=== PATIENT | female | born 1950 | race Caucasian/White ===

== ENCOUNTER → 2016-06-28 | Outpatient (CLI) | payer MEDICARE, MEDICAID ==
[~2016-06-28] MED LIST: BENA10TA PO; ECOT81TA5 PO; LAMO200T PO; LORTAB 5/325 PO; MAGN400C2 PO; PAME25CA PO; PRIM50TA6 PO; SERT50TA PO; TOPI50TA4 PO; VITA500C10 PO
--- NOTE | 2016-06-28 09:17 | REPMRS ---
Patient History The patient states she has not had a clinical breast exam in over a year. Patient is postmenopausal. Family history of breast cancer in 3 sisters. Digital Woman Screen Mammo: June 28, 2016 - Exam #: [id number] Bilateral CC and MLO view(s) were taken. Technologist: Susan Omer, Technologist Prior study comparison: July 15, 2015, digital woman screen mammo performed at [facility] to [facility]. July 17, 2014, digital woman screen mammo performed at [facility] to [facility]. FINDINGS: There are scattered fibroglandular densities. There has been no change in the appearance of the mammogram from the prior studies. There is a mild amount of residual fibroglandular tissue which is fairly symmetric. There is no interval development of dominant mass, architectural distortion, or clustered microcalcification suggestive of malignancy. ASSESSMENT: BI-RADS/ACR category 1 mammogram. Negative. Recommendation Routine screening mammogram in 1 year (for women over age 40). This mammogram was interpreted with the aid of an FDA-approved computer-aided dectection system. Electronically Signed By: Sudarshan Cunningham MD 06/28/16 0916
== END ==
LOC: M WHC 07:52
PROVIDERS: ATTEND Family Medicine
DX: Z12.31 Encounter for screening mammogram for malignant neoplasm of breast (principal); Z13.820 Encounter for screening for osteoporosis

== ENCOUNTER → 2017-07-06 | Outpatient (CLI) | payer OTHER | LOC: M WHC 07:53 | DX: Z12.31 Encounter for screening mammogram for malignant neoplasm of breast (principal) | CPT/HCPCS: 77067 ==

== ENCOUNTER → 2018-07-05 | Outpatient (CLI) | payer MEDICARE ==
[~2018-07-05] MED LIST changes: -LAMO200T PO; +LAMO200T2 PO; +SERT-141 PO; -SERT50TA PO; -TOPI50TA4 PO; +TOPI50TA9 PO
--- NOTE | 2018-07-05 16:26 | REPMRS ---
Patient History The patient states she has not had a clinical breast exam in over a year. Family history of breast cancer at age 50 or over in sister, breast cancer at age 50 or over in sister, breast cancer in sister, breast cancer in sister, breast cancer in mother. Digital Woman Screen Mammo: July 05, 2018 - Exam #: [id number] Bilateral CC and MLO view(s) were taken. Technologist: Nina Lau, Technologist Prior study comparison: July 06, 2017, digital woman screen mammo performed at [facility]. June 28, 2016, digital woman screen mammo performed at [facility]. July 15, 2015, digital woman screen mammo performed at [facility]. FINDINGS: There are scattered fibroglandular densities. There has been no change in the appearance of the mammogram from the prior studies. There is a mild amount of scattered fibroglandular density which is fairly symmetric. There is no interval development of dominant mass, architectural distortion, or clustered microcalcification suggestive of malignancy. 3-D tomosynthesis shows no additional findings. Assessment: BI-RADS/ACR category 1 mammogram. Negative Mammogram. Recommendation Routine screening mammogram of both breasts in 1 year (for women over age 40). This patient's Lifetime Breast Cancer RIsk is estimated at 12.5 %. This mammogram was interpreted with the aid of an FDA-approved computer-aided dectection system. Electronically Signed By: Westley Ash MD 07/05/18 [id number]
== END ==
LOC: M WHC 12:49
PROVIDERS: ATTEND Family Medicine
DX: Z12.31 Encounter for screening mammogram for malignant neoplasm of breast (principal)

== ENCOUNTER 2019-02-24 21:43 | Inpatient (IN) | payer MEDICARE ==
[~2019-02-24] VITALS: Ht 154.9 cm; Wt 86.6 kg
[~2019-02-24 21:43] MED LIST changes: -LAMO200T2 PO; +LAMO200T3 PO
[2019-02-24] MEDS ORDERED: VITA500045 PO (22:11)
[2019-02-24] MEDS ORDERED: VENL150C43 PO (22:11)
[2019-02-24] MEDS ORDERED: ATOR1TAB21 PO (22:11)
[2019-02-24] MEDS ORDERED: dexameTHASONE 20 MG/5 ML VIAL (J1100) IV ONE (22:15)
[2019-02-24 22:17] LABS: BASO # 0.1 10^3/uL (0.0-0.2); BASO % 0.9 % (0.0-1.0); EOS # 0.2 10^3/uL (0.0-0.5); EOS % 3.4 % (0.0-3.0); HEMATOCRIT 41.9 % (36.0-47.0); HEMOGLOBIN 12.3 g/dl (12.0-15.5); LYMPH # 2.2 10^3/uL (1.5-5.0); MEAN CORPUSCULAR HEMOGLOBIN 29.6 pg (27.0-33.0); MEAN CORPUSCULAR HGB CONC 29.4 g/dl (32.0-36.5); MEAN CORPUSCULAR VOLUME 100.7 fl (80.0-96.0); MONO # 0.4 10^3/uL (0.0-0.8); NEUTROPHILS % 52.4 % (36.0-66.0); PLATELET COUNT, AUTOMATED 158 10^3/uL (150-450); RED BLOOD COUNT 4.16 10^6/uL (4.00-5.40); WHITE BLOOD COUNT 5.8 10^3/uL (4.0-10.0)
[2019-02-24 22:19] LABS: VENOUS BASE EXCESS -3.3 (-2.0-2.0); VENOUS O2 SATURATION 80.2 % (60.0-80.0); VENOUS PARTIAL PRESSURE CO2 59.7 mmHg (38.0-50.0); VENOUS PARTIAL PRESSURE O2 48.8 mmHg (30.0-50.0); VENOUS STANDARD HCO3 21.4 MEQ/L; VENOUS TOTAL CO2 26.8 MEQ/L (24.0-28.0)
[2019-02-24] MEDS: IPRATROPIUM 0.5MG/ALBUTEROL 2.5MG INH SOL UD 3ML (DUONEB)(J7620) NEB SCH ×3 (22:22→23:43)
[2019-02-24 22:34] LABS: BLOOD UREA NITROGEN 26 MG/DL (7-18); CARBON DIOXIDE LEVEL 28 MEQ/L (21-32); CHLORIDE LEVEL 110 MEQ/L (98-107); CK-MB VALUE MASS 1.5 NG/ML (<3.6); CPK CREATINE PHOSPHOKINASE 49 U/L (26-192); CREATININE FOR GFR 0.92 MG/DL (0.55-1.30); GLOMERULAR FILTRATION RATE > 60.0 (>45); GLUCOSE, FASTING 112 MG/DL (70-100); MB/CK RELATIVE INDEX 3.06 (< OR =4); NT-PRO BNP 24 PG/ML (<125); POTASSIUM SERUM 3.8 MEQ/L (3.5-5.1); SODIUM LEVEL 143 MEQ/L (136-145); TROPONIN I < 0.02 NG/ML (< 0.10)
[2019-02-24 22:48] LABS: INFLUENZA A AMPLIFICATION NEGATIVE (NEGATIVE); INFLUENZA B AMPLIFICATION NEGATIVE (NEGATIVE)
[2019-02-24] MEDS ORDERED: HALOPERIDOL 5 MG/ML VIAL (J1630) IM STA (23:09)
[2019-02-24] MEDS ORDERED: diphenhydrAMINE INJ 50MG/ML VIAL (J1200) IM STA (23:09)
[2019-02-24] MEDS ORDERED: TOPI50TA9 PO (23:12)
[2019-02-24] MEDS ORDERED: VITA500C24 PO (23:12)
[2019-02-24] MEDS ORDERED: TOPI100T9 PO ×2 (23:13)
[2019-02-24] MEDS ORDERED: TYLETAB14 PO (23:16)
[2019-02-24] MEDS ORDERED: HYDR-3713 PO (23:16)
--- NOTE | 2019-02-24 23:28 | HPEPDOC ---
[facility] [place] Medical History & Physical Date of Admission Feb 24, 2019 Date of Service: Feb 24, 2019 Primary Care Physician: ARYAN DELEON MD [facility] Attending Physician: LINNETTE PAN MD History and Physical TIME OF SERVICE: 11:55 PM CHIEF COMPLAINT:Shortness of breath HISTORY OF PRESENT ILLNESS: Majority of history was obtained of the patient's children because she has difficult. He talking This is a 68-year-old female who is complaining of gradually worsening shortness of breath over the last 2 months. She came to the hospital today because she developed worsening shortness of breath with exertion and a dry cough. She denies having fevers, chills, nausea, vomiting, diarrhea, chest pain, lower extremity edema, decreased activity or headache. According to her children her whole-body has been "shaking" for the last year but became worse today. REVIEW OF SYSTEMS: 12 point review of systems negative except as listed in HPI PAST MEDICAL/ SURGICAL HISTORY: Restrictive lung disease. Chronic Hypertension Meningioma Seizure disorder GERD Depression Scoliosis. Status post cholecystectomy. Obesity. 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 SOCIAL HISTORY: She doesn't smoke FAMILY HISTORY: 3 of her sisters and her mother had breast cancer ALLERGIES: Please see below. HOME MEDICATIONS: Please see below. PHYSICAL EXAMINATION: VITAL SIGNS: Please see below. GEN: well nourished / well developed/ / slightly anxious INTEGUMENT: She does not have facial plethora HEENT: normocephalic / atraumatic / lips are not cyanotic / she does not have pursed lip breathing / NC in place / maximal laryngeal height is <4cm / mucus membranes moist and slightly dry/ sclera anicteric CVS: RRR/unable to appreciate P-pulmonale / heart sounds are not distant / radial and dorsalis pedis pulses intact / there is no no lower extremity edema LUNGS: She does not have nasal flaring /she is not able to speak full sentences without stopping to take a breath /she is coughing / there is decreased respiratory expansion/ her lungs lungs are hyper resonant on percussion / her breath sounds are decreased, but there is and wheezing ABDOMEN: The abdomen is obese, soft & not tender with palpation MSK/EXTREMITIES: She does have scoliosis NEURO: CN 2-12 are grossly intact / speech is not dysarthric / she does have prominent tremor that is affecting the right arm more than the left, along with the head PSYCH: alert and oriented/ able to understand and follow all commands LABORATORY DATA: See below. IMAGING: Chest x-rays of poor quality as the patient is rotated and has inspired; there doesn't appear to be an acute process, but the final read is pending MICROBIOLOGY: Please see below. ASSESSMENT: Ms. Cortez is a 68-year-old with a past medical history restrictive lung disease, hypertension, scoliosis, seizures or, and a meningioma that was managed conservatively will be admitted for management of shortness of breath, possibly due to bronchitis. PLAN: 1. Dyspnea Likely due to viral bronchitis. At baseline, she has a restrictive lung disease and may also have obesity hypove ntilation syndrome. Vitals, VBG, EKG, troponin, BNP, chest x-ray, Influenza A and B are only remarka ble for an elevated PCO2 Plan: Admit to medical floor/attempt weaning of oxygen/follow-up final chest x- ray report/levalbuterol when necessary/if she doesn't improve in the morning, the daytime team may consider CT of the chest and/or Palm consult 2. Tachycardia. Likely due to no treatments. Plan: Telemetry, and switch to levalbuterol. 3. Chronic Hypertension Plan: Lisinopril 5. Seizure disorder. Plan: Lamotrigine, primidone and topiramate 6. Depression Plan: venlafaxine, nortriptyline and sertraline 7.Tremor Plan: Primidone Obesity BMI is 35.8 This complicates her care Plan: f/u A1C / She can can f/u w PCP for a STOP BANG questionnaire if this has not yet been done & a professor of religion consult DVT prophylaxis Lovenox. Disposition likely home after more than 2 midnight stay Vital Signs Vital Signs Date Time Temp Pulse Resp B/P (MAP) Pulse Ox O2 Delivery O2 Flow Rate FiO2 02/24/19 22:00 108 28 129/78 (95) 95 Room Air 02/24/19 21:57 97.8 Laboratory Data Labs 24H Laboratory Tests 2 02/24/19 22:04: Immature Granulocyte % (Auto) 0.3, Neutrophils (%) (Auto) 52.4, Lymphocytes (%) (Auto) 37.0, Monocytes (%) (Auto) 6.0H, Eosinophils (%) (Auto) 3.4H, Basophils (%) (Auto) 0.9, Neutrophils # (Auto) 3.0, Lymphocytes # (Auto) 2.2, Monocytes # (Auto) 0.4, Eosinophils # (Auto) 0.2, Basophils # (Auto) 0.1, Nucleated Red Blood Cells % (auto) 0.0, Blood Gas Bicarbonate Standard 21.4, Venous Blood pH 7.240L, Venous Blood Partial Pressure CO2 59.7H, Venous Blood Partial Pressure O2 48.8, Venous Blood Total Carbon Dioxide 26.8, Venous Blood HCO3 25.0, Venous Blood Oxygen Saturation 80.2H, Venous Blood Base Excess -3.3L, Anion Gap 5L, Glomerular Filtration Rate > 60.0, Calcium Level 8.0L, Total Creatine Kinase 49, Creatine Kinase MB 1.5, Creatine Kinase MB Relative Index 3.06, Troponin I < 0.02, KC-Bwu-O-Type Natriuretic Peptide 24, Influenza Type A (RT-PCR) NEGATIVE, Influenza Type B (RT-PCR) NEGATIVE CBC/BMP Laboratory Tests 02/24/19 22:04 Microbiology Microbiology 02/24/19 Blood Culture, Received Pending Home Medications Scheduled Ascorbic Acid (Vitamin C) 500 Mg Capsule, 500 MG PO DAILY Aspirin (Ecotrin) 81 Mg Tab, 81 MG PO DAILY Atorvastatin Calcium (Atorvastatin Calcium) 20 Mg Tablet, 20 MG PO DAILY Benazepril Hcl (Benazepril HCl) 10 Mg Tab, 10 MG PO DAILY Ergocalciferol (Vitamin D2) (Vitamin D2) 50,000 Unit Capsule, 50,000 UNITS PO 1XWK Lamotrigine (Lamotrigine) 200 Mg Tab, 200 MG PO BID Magnesium Oxide (Magnesium) 400 Mg Cap, 400 MG PO BID Nortriptyline Hcl (Pamelor) 25 Mg Cap, 25 MG PO QAM Nortriptyline Hcl (Pamelor) 25 Mg Cap, 50 MG PO QHS Primidone (Primidone) 50 Mg Tab, 100 MG PO BID Sertraline Hcl (Sertraline HCl) 50 Mg Tab, 100 MG PO QAM Sertraline Hcl (Sertraline HCl) 50 Mg Tab, 50 MG PO QHS Topiramate (Topiramate) 100 Mg Tablet, 150 MG PO QHS Topiramate (Topiramate) 100 Mg Tablet, 100 MG PO QAM Venlafaxine HCl (Venlafaxine HCl ER) 150 Mg Cap.er.24h, 150 MG PO DAILY Scheduled PRN Acetaminophen with Codeine (Tylenol with Codeine #3 Tablet) 1 Each Tablet, 1 TAB PO Q6H PRN for pain Hydrocodone/Acetaminophen (Hydrocodone-Acetamin 5-325 mg) 1 Each Tablet, 1-2 TAB PO Q4-6HP PRN for pain Allergies Coded Allergies: bee venom protein (honey bee) (Verified Allergy, Severe, anaphylaxis, 02/24/19) A-FIB/CHADSVASC A-FIB History Current/History of A-Fib/PAF?: No Current PO Anticoag Therapy: LINNETTE Gordon MD Feb 24, 2019 23:28
[2019-02-24] MEDS ORDERED: MOM 30ML SUSPENSION UDC PO PRN (23:30)
[2019-02-24] MEDS ORDERED: LEVALBUTEROL 1.25 MG/0.5 ML CONCENTRATE NEB NEB PRN (23:30)
[2019-02-24] MEDS ORDERED: ACETAMINOPH W/CODEINE #3 TAB UD PO PRN (23:30)
[2019-02-24] MEDS ORDERED: MAALOX 30 ML SUSP *UDC PO PRN (23:30)
[2019-02-25 00:30] VITALS: BP 108/70
[2019-02-25 05:55] VITALS: O2SAT 97
[2019-02-25 06:00] VITALS: BP 120/70
[2019-02-25 07:11] LABS: HEMATOCRIT 39.1 % (36.0-47.0); HEMOGLOBIN 11.9 g/dl (12.0-15.5); MEAN CORPUSCULAR HEMOGLOBIN 30.4 pg (27.0-33.0); MEAN CORPUSCULAR HGB CONC 30.4 g/dl (32.0-36.5); PLATELET COUNT, AUTOMATED 178 10^3/uL (150-450); RED BLOOD COUNT 3.91 10^6/uL (4.00-5.40); WHITE BLOOD COUNT 7.4 10^3/uL (4.0-10.0)
[2019-02-25 07:30] LABS: CALCIUM LEVEL 8.8 MG/DL (8.8-10.2); GLOMERULAR FILTRATION RATE 58.9 (>45); MAGNESIUM LEVEL 2.9 MG/DL (1.8-2.4); POTASSIUM SERUM 4.5 MEQ/L (3.5-5.1)
[2019-02-25] MEDS: lamoTRIgine 100MG TAB PO SCH ×2 (08:21→22:24)
[2019-02-25] MEDS: PRIMIDONE 50 MG TAB PO SCH ×2 (08:22→22:25)
[2019-02-25] MEDS: ATORVASTATIN 20 MG TAB PO SCH (08:22)
[2019-02-25] MEDS: ASPIRIN 81 MG ENTERIC TAB PO SCH (08:22)
[2019-02-25] MEDS: lisinopriL 10 MG TAB PO SCH (08:22)
[2019-02-25] MEDS: SERTRALINE HCL 50 MG TAB PO SCH ×2 (08:22→22:24)
[2019-02-25] MEDS: VENLAFAXINE **XR** 75MG CAPSULE PO SCH (08:22)
[2019-02-25] MEDS: ENOXAPARIN 40 MG/0.4 ML SYRINGE (J1650) SC SCH (08:23)
[2019-02-25] MEDS: TOPIRAMATE (TopAMAX) 100 MG TAB PO SCH ×2 (08:23→22:25)
[2019-02-25] MEDS: NORTRIPTYLINE 25 MG CAP PO SCH ×2 (08:23→22:25)
[2019-02-25] MEDS ORDERED: MAGNESIUM OXIDE 400 MG TAB (MAG-OX) PO SCH (09:00)
--- NOTE | 2019-02-25 09:47 | ECGEPIP ---
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
[2019-02-25 09:52] LABS: ABG HCO3 22.9 MEQ/L (22.0-26.0); ABG O2 SATURATION 99.1 % (95.0-99.0); ABG PARTIAL PRESSURE CO2 49.2 mmHg (35.0-45.0); ABG PARTIAL PRESSURE O2 143.4 mmHg (75.0-100.0); ABG STANDARD HCO3 21.2 MEQ/L (22.0-26.0); ABG TOTAL CO2 24.4 MEQ/L (23.0-31.0); ABG pH (ARTERIAL) 7.286 UNITS (7.350-7.450)
[2019-02-25] MEDS ORDERED: ACETAMINOPH W/CODEINE #3 TAB UD PO PRN (11:24)
--- NOTE | 2019-02-25 11:47 | REP ---
AP PORTABLE CHEST: 02/24/2019. Comparison: 10/02/2013 chest x-ray. Clinical history: Dyspnea. Findings: Heart size prominent but also exaggerated by lordotic portable technique. Low lung volumes with some basilar atelectatic changes. There is an incarcerated hiatal hernia again seen. Airway intact. The aorta is mildly tortuous, unchanged. There are degenerative changes in the thoracic spine with an S-shaped thoracolumbar scoliosis. Impression: 1. Prominent heart size without laxmi edema. Some basilar atelectatic or infiltrative changes left greater than right. 2. Incarcerated hiatal hernia as before. Electronically Signed by Augustine Lanier MD 02/25/2019 05:06 P
[2019-02-25] MEDS ORDERED: FLUBLOK(EGG FREE)(QUAD)INFLUENZA VACC 0.5ML SYRINGE (90682)18YRS&OLDER IM ONE (12:00)
[2019-02-25] MEDS ORDERED: PREVNAR 13 VACCINE SYRINGE (CPT CODE:90670) IM ONE (13:00)
[2019-02-25 14:00] VITALS: BP 119/72
--- NOTE | 2019-02-25 17:44 | IPNPDOC ---
Text Note Date of Service The patient was seen on 02/25/19. NOTE Subjective: patient complains of mild shortness of breath with weakness. Patient denied fever, chills, nausea, vomiting, diarrhea, chest pain, palpitations. Objective: NAD HEENT: MILVIARALAN, EOMI CVS: S1-S2 LUNGS: Diminished lung sounds with expiratory wheezes ABDOMEN: Nontender, nondistended MSK/EXTREMITIES: She does have scoliosis NEURO: Moves 4 limbs, follows commands, right arm tremors Ms. Cortez is a 68-year-old with a past medical history restrictive lung disease, hypertension, scoliosis, seizures, and a meningioma that was managed conservatively will be admitted for management of shortness of breath Shortness of breath Secondary to COPD exacerbation DuoNeb [id number] Incentive spirometry Prednisone 40 mg Tachycardia. Most likely secondary to respiratory distress Metoprolol 25 mg twice a day Chronic Hypertension Lisinopril Seizure disorder. Lamotrigine, primidone and topiramate Depression venlafaxine, nortriptyline and sertraline Tremor Primidone VS,Fishbone, I+O VS, Fishbone, I+O Laboratory Tests 02/24/19 22:04 02/25/19 06:50 Vital Signs Date Time Temp Pulse Resp B/P (MAP) Pulse Ox O2 Delivery O2 Flow Rate FiO2 02/25/19 14:00 97.8 103 19 119/72 (88) 94 Room Air 02/25/19 12:02 1.0 I&O- Last 24 Hours up to 6 AM 02/25/19 06:00 Intake Total 0 ml Output Total 400 ml Balance -400 ml RJ RANDALL DO Feb 25, 2019 17:44
[2019-02-25] MEDS ORDERED: METOPROLOL TART 25 MG TABLET PO ONE (18:00)
[2019-02-25] MEDS: predniSONE 20 MG TAB PO SCH (18:25)
[2019-02-25 21:00] VITALS: O2SAT 95
[2019-02-25 22:00] VITALS: BP 103/55
[2019-02-25] MEDS: TOPIRAMATE (TopAMAX) 25 MG TAB PO SCH (22:25)
[2019-02-26 06:00] VITALS: BP 110/78
[2019-02-26 09:12] LABS: ABG HCO3 23.1 MEQ/L (22.0-26.0); ABG O2 SATURATION 94.8 % (95.0-99.0); ABG PARTIAL PRESSURE CO2 45.8 mmHg (35.0-45.0); ABG PARTIAL PRESSURE O2 75.7 mmHg (75.0-100.0); ABG STANDARD HCO3 21.9 MEQ/L (22.0-26.0); ABG TOTAL CO2 24.5 MEQ/L (23.0-31.0); ABG pH (ARTERIAL) 7.321 UNITS (7.350-7.450)
[2019-02-26] MEDS: ENOXAPARIN 40 MG/0.4 ML SYRINGE (J1650) SC SCH (09:44)
[2019-02-26] MEDS: PRIMIDONE 50 MG TAB PO SCH ×2 (09:44→20:16)
[2019-02-26] MEDS: ATORVASTATIN 20 MG TAB PO SCH (09:44)
[2019-02-26] MEDS: ASPIRIN 81 MG ENTERIC TAB PO SCH (09:44)
[2019-02-26] MEDS: SERTRALINE HCL 50 MG TAB PO SCH ×2 (09:45→20:15)
[2019-02-26] MEDS: TOPIRAMATE (TopAMAX) 100 MG TAB PO SCH ×2 (09:45→20:17)
[2019-02-26] MEDS: lamoTRIgine 100MG TAB PO SCH ×2 (09:45→20:16)
[2019-02-26] MEDS: VENLAFAXINE **XR** 75MG CAPSULE PO SCH (09:45)
[2019-02-26] MEDS: predniSONE 20 MG TAB PO SCH (09:45)
[2019-02-26] MEDS: NORTRIPTYLINE 25 MG CAP PO SCH ×2 (09:45→20:16)
[2019-02-26] MEDS: lisinopriL 10 MG TAB PO SCH (09:49)
[2019-02-26 11:00] VITALS: O2SAT 96
[2019-02-26 14:00] VITALS: BP 110/76
--- NOTE | 2019-02-26 16:27 | IPNPDOC ---
Text Note Date of Service The patient was seen on 02/26/19. NOTE Subjective: No any acute events overnight. Patient denied fever, chills, nausea, vomiting, diarrhea, chest pain, palpitations. Objective: NAD HEENT: DANILO, EOMI CVS: S1-S2 LUNGS: Diminished lung sounds with mild expiratory wheezes ABDOMEN: Nontender, nondistended MSK/EXTREMITIES: She does have scoliosis NEURO: Moves 4 limbs, follows commands, right arm tremors Ms. Cortez is a 68-year-old with a past medical history restrictive lung disease, hypertension, scoliosis, seizures, and a meningioma that was managed conservatively will be admitted for management of shortness of breath Shortness of breath Improved today Secondary to COPD exacerbation DuoNeb [id number] Incentive spirometry Continue Prednisone 40 mg Tachycardia. Most likely secondary to respiratory distress Metoprolol 25 mg twice a day Chronic Hypertension Lisinopril Seizure disorder. Lamotrigine, primidone and topiramate Depression venlafaxine, nortriptyline and sertraline Tremor Primidone History of fall pt is noted to have 2 falls last week when trying to get to the bathroom becuase she is unable to take the walker into the bathroom Continue physical therapy, currently not safe to go home. VS,Fishbone, I+O VS, Fishbone, I+O Vital Signs Date Time Temp Pulse Resp B/P (MAP) Pulse Ox O2 Delivery O2 Flow Rate FiO2 02/26/19 14:00 97.8 90 20 110/76 (87) 98 Room Air 02/26/19 11:00 2.0 I&O- Last 24 Hours up to 6 AM 02/26/19 06:00 Intake Total 890 ml Output Total 800 ml Balance 90 ml RJ RANDALL DO Feb 26, 2019 16:27
[2019-02-26] MEDS: TOPIRAMATE (TopAMAX) 25 MG TAB PO SCH (20:17)
[2019-02-26 22:00] VITALS: BP 130/76
[2019-02-27] MEDS: NYSTATIN 100,000 UNITS/GM TOPICAL PWD 15 GM TOP SCH ×2 (00:50→09:03)
[2019-02-27 02:17] VITALS: O2SAT 96
[2019-02-27 06:00] VITALS: BP 131/71
[2019-02-27 06:48] LABS: HEMATOCRIT 38.2 % (36.0-47.0); HEMOGLOBIN 11.8 g/dl (12.0-15.5); MEAN CORPUSCULAR HEMOGLOBIN 30.4 pg (27.0-33.0); MEAN CORPUSCULAR HGB CONC 30.9 g/dl (32.0-36.5); MEAN CORPUSCULAR VOLUME 98.5 fl (80.0-96.0); PLATELET COUNT, AUTOMATED 153 10^3/uL (150-450); RED BLOOD COUNT 3.88 10^6/uL (4.00-5.40); WHITE BLOOD COUNT 8.1 10^3/uL (4.0-10.0)
[2019-02-27 09:00] VITALS: O2SAT 94
[2019-02-27] MEDS: SERTRALINE HCL 50 MG TAB PO SCH (09:01)
[2019-02-27] MEDS: lamoTRIgine 100MG TAB PO SCH (09:01)
[2019-02-27 09:02] VITALS: BP 132/72
[2019-02-27] MEDS: ASPIRIN 81 MG ENTERIC TAB PO SCH (09:02)
[2019-02-27] MEDS: predniSONE 20 MG TAB PO SCH (09:02)
[2019-02-27] MEDS: VENLAFAXINE **XR** 75MG CAPSULE PO SCH (09:02)
[2019-02-27] MEDS: ATORVASTATIN 20 MG TAB PO SCH (09:02)
[2019-02-27] MEDS: lisinopriL 10 MG TAB PO SCH (09:02)
[2019-02-27] MEDS: ENOXAPARIN 40 MG/0.4 ML SYRINGE (J1650) SC SCH (09:03)
[2019-02-27] MEDS: TOPIRAMATE (TopAMAX) 100 MG TAB PO SCH (09:03)
[2019-02-27] MEDS: NORTRIPTYLINE 25 MG CAP PO SCH (09:03)
[2019-02-27] MEDS: PRIMIDONE 50 MG TAB PO SCH (09:03)
[2019-02-27] MEDS ORDERED: PRED20TA PO (12:57)
--- NOTE | 2019-02-27 15:36 | DS.PDOC ---
Discharge Summary General Date of Admission Feb 24, 2019 at 23:28 Date of Discharge 02/27/2019 Attending Physician: MAKENNA JOHNSON MD Discharge Summary PROCEDURES PERFORMED DURING STAY: None ADMITTING DIAGNOSES: 1. COPD exacerbation DISCHARGE DIAGNOSES: 1. COPD exacerbation 2. Chronic Hypertension 3. Meningioma 4. Seizure disorder 5. GERD 6. Depression 6. Scoliosis 7. Obesity 8. 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 COMPLICATIONS/CHIEF COMPLAINT: Reactive Airway Disease With Wheezing. HISTORY OF PRESENT ILLNESS: 68-year-old woman with a history of restrictive lung disease with scoliosis and COPD who presented to the ED complaining of gradually worsening shortness of breath over 2 months and came in with shortness of breath with exertion and a dry cough without any fevers, chills, nausea, vomiting, diarrhea, chest pain, lower extremity edema, decreased activity or headache. HOSPITAL COURSE: She arrived hemodynamically stable and was afebrile and had a n egative respiratory panel, no sputum production, unremarkable CXR without any focal opacities and was started on prednisone 40mg daily in addition to duonebs and levalbuterol. She initially required supplemental oxygen but returned back to room air. She was evaluated by PT that deemed her safe for home discharged without evidence of desaturation or becoming winded with her baseline distance of ambulation within the unit. She is now being discharged home to complete a 5 day course of prednisone 40mg with 2 more days of prednisone, and to resume her home inhalers, and is to be seen by her PCP within 1 week of discharged as well as home health services. DISCHARGE MEDICATIONS: Please see below. ALLERGIES: Please see below. PHYSICAL EXAMINATION ON DISCHARGE: VITAL SIGNS: Please see below. Objective: NAD HEENT: NCAT, PERRLA, EOMI, MMM CVS: RRR, S1-S2, no mrg LUNGS: Fair air movement this morning, with slightly diminished lung sounds without any wheezing or crackles ABDOMEN: Nontender, nondistended MSK/EXTREMITIES: has kyphoscoliosis NEURO: Moves all 4 limbs spontaneously, follows commands, right arm resting tremor is present and is reportedly present at baseline. LABORATORY DATA: Please see below. IMAGING: CXR Prominent heart size without laxmi edema. Some basilar atelectatic or infiltrative changes left greater than right. PROGNOSIS: Good ACTIVITY: As tolerated. DIET: Regular DISCHARGE PLAN: Home with PCP follow up with 2 more days of pred 40 for a total 5 days. DISPOSITION: Home with home services DISCHARGE INSTRUCTIONS: 1. Please follow up with your PCP within 1 week of hospital discharge ITEMS TO FOLLOWUP ON ON OUTPATIENT: 1. COPD exacerbation resolution 2. Exercise tolerance DISCHARGE CONDITION: Stable. TIME SPENT ON DISCHARGE: 37 minutes. Vital Signs/I&Os Vital Signs Date Time Temp Pulse Resp B/P (MAP) Pulse Ox O2 Delivery O2 Flow Rate FiO2 02/27/19 09:02 132/72 02/27/19 06:00 96.8 88 25 95 Room Air 02/27/19 02:17 1.0 I&O- Last 24 Hours up to 6 AM 02/27/19 06:00 Intake Total 2185 ml Output Total 200 ml Balance 1985 ml Laboratory Data Labs 24H Laboratory Tests 2 02/27/19 06:14: Nucleated Red Blood Cells % (auto) 0.0 CBC/BMP Laboratory Tests 02/27/19 06:14 Microbiology Microbiology 02/24/19 Blood Culture - Preliminary, Resulted No Growth after 48 hours. All Specime... Discharge Medications Scheduled Ascorbic Acid (Vitamin C) 500 Mg Capsule, 500 MG PO DAILY, (Reported) Aspirin (Ecotrin) 81 Mg Tab, 81 MG PO DAILY, (Reported) Atorvastatin Calcium (Atorvastatin Calcium) 20 Mg Tablet, 20 MG PO DAILY, (Reported) Benazepril Hcl (Benazepril HCl) 10 Mg Tab, 10 MG PO DAILY, (Reported) Ergocalciferol (Vitamin D2) (Vitamin D2) 50,000 Unit Capsule, 50,000 UNITS PO 1XWK, (Reported) Lamotrigine (Lamotrigine) 200 Mg Tab, 200 MG PO BID, (Reported) Magnesium Oxide (Magnesium) 400 Mg Cap, 400 MG PO BID, (Reported) Nortriptyline Hcl (Pamelor) 25 Mg Cap, 25 MG PO QAM, (Reported) Nortriptyline Hcl (Pamelor) 25 Mg Cap, 50 MG PO QHS, (Reported) Prednisone (Prednisone) 20 Mg Tablet, 40 MG PO DAILY Primidone (Primidone) 50 Mg Tab, 100 MG PO BID, (Reported) Sertraline Hcl (Sertraline HCl) 50 Mg Tab, 100 MG PO QAM, (Reported) Sertraline Hcl (Sertraline HCl) 50 Mg Tab, 50 MG PO QHS, (Reported) Topiramate (Topiramate) 100 Mg Tablet, 150 MG PO QHS, (Reported) Topiramate (Topiramate) 100 Mg Tablet, 100 MG PO QAM, (Reported) Venlafaxine HCl (Venlafaxine HCl ER) 150 Mg Cap.er.24h, 150 MG PO DAILY, (Reported) Scheduled PRN Acetaminophen with Codeine (Tylenol with Codeine #3 Tablet) 1 Each Tablet, 1 TAB PO Q6H PRN for pain, (Reported) Hydrocodone/Acetaminophen (Hydrocodone-Acetamin 5-325 mg) 1 Each Tablet, 1-2 TAB PO Q4-6HP PRN for pain, (Reported) Allergies Coded Allergies: bee venom protein (honey bee) (Verified Allergy, Severe, anaphylaxis, 02/24/19) MAKENNA JOHNSON MD Feb 27, 2019 15:36
== END 2019-02-27 14:56 | disposition home health service (06) | DRG 192 ==
LOC: M ED 21:43 → EDBD 21:43 → M ED INP 23:28 → M MSPAV 02-25 00:19
PROVIDERS: ADMIT Internal Medicine; ATTEND Internal Medicine
DX: J44.1 Chronic obstructive pulmonary disease with (acute) exacerbation (principal); K21.9 Gastro-esophageal reflux disease without esophagitis; I10 Essential (primary) hypertension; F32.9 Major depressive disorder, single episode, unspecified; E66.9 Obesity, unspecified; G40.909 Epilepsy, unspecified, not intractable, without status epilepticus; M41.9 Scoliosis, unspecified; Z79.82 Long term (current) use of aspirin; Z79.899 Other long term (current) drug therapy; Z91.030 Bee allergy status; Z68.35 Body mass index [BMI] 35.0-35.9, adult; D32.0 Benign neoplasm of cerebral meninges; R25.1 Tremor, unspecified; R00.0 Tachycardia, unspecified

== ENCOUNTER → 2019-09-13 | Outpatient (CLI) | payer MEDICARE ==
[~2019-09-13] MED LIST changes: +ATOR1TAB21 PO; +HYDR-3713 PO; +PRED20TA PO; +TOPI100T9 PO; +TYLETAB14 PO; +VENL150C43 PO; +VITA500045 PO; +VITA500C24 PO
[2019-09-13 10:04] LABS: HEMATOCRIT 43.7 % (36.0-47.0); MEAN CORPUSCULAR HEMOGLOBIN 29.3 pg (27.0-33.0); MEAN CORPUSCULAR HGB CONC 29.7 g/dl (32.0-36.5); MEAN CORPUSCULAR VOLUME 98.6 fl (80.0-96.0); PLATELET COUNT, AUTOMATED 185 10^3/uL (150-450); RED BLOOD COUNT 4.43 10^6/uL (4.00-5.40); WHITE BLOOD COUNT 7.8 10^3/uL (4.0-10.0)
[2019-09-13 10:22] LABS: HEMOGLOBIN A1c 5.4 %
[2019-09-13 10:36] LABS: ALBUMIN 3.6 GM/DL (3.2-5.2); ALT/SGPT 19 U/L (12-78); BILIRUBIN,TOTAL 0.3 MG/DL (0.2-1.0); BLOOD UREA NITROGEN 18 MG/DL (7-18); CALCIUM LEVEL 8.6 MG/DL (8.8-10.2); CARBON DIOXIDE LEVEL 28 MEQ/L (21-32); CHLORIDE LEVEL 106 MEQ/L (98-107); CHOLESTEROL LEVEL 172 MG/DL (<200); CHOLESTEROL RISK RATIO 2.965 (<5); GLOMERULAR FILTRATION RATE > 60.0 (>45); GLUCOSE, FASTING 82 MG/DL (70-100); HDL CHOLESTEROL 58 MG/DL (>40); LDL CHOLESTEROL 85 MG/DL (<100); NON-HDL-C 114 MG/DL; POTASSIUM SERUM 4.1 MEQ/L (3.5-5.1); SODIUM LEVEL 141 MEQ/L (136-145); TOTAL PROTEIN 7.1 GM/DL (6.4-8.2); TRIGLYCERIDES LEVEL 145 MG/DL (<150)
== END ==
LOC: M WUC 08:07
PROVIDERS: ATTEND Family Medicine
DX: R73.01 Impaired fasting glucose (principal); I10 Essential (primary) hypertension

== ENCOUNTER → 2019-10-26 | Outpatient (REF) | payer MEDICARE ==
[2019-12-10 09:28] LABS: BLOOD UREA NITROGEN 17 MG/DL (7-18); CREATININE FOR GFR 0.91 MG/DL (0.55-1.30); GLOMERULAR FILTRATION RATE > 60.0 (>45)
== END ==
LOC: M LAB REF 13:09
PROVIDERS: ATTEND Internal Medicine Pulmonary Disease
DX: R94.2 Abnormal results of pulmonary function studies (principal)

== ENCOUNTER → 2019-12-18 | Outpatient (CLI) | payer MEDICARE ==
--- NOTE | 2019-12-26 14:39 | REP ---
PET CT HISTORY: Diagnosing solitary pulmonary nodule. COMPARISON: CT from 12/10/2019 done at [facility] demonstrated a nodular opacity in the left posterior lung gutter. TECHNIQUE: 49 minutes following the intravenous injection of a 9.11 mCi dose of F18 fluorodeoxyglucose (FDG), three-dimensional PET CT imaging is acquired from the skull base to the proximal thighs in the usual fashion. PET CT FINDINGS: Head and neck soft tissues are unremarkable. No abnormal hypermetabolic uptake is seen within either hilus or mediastinum. Severe rotoscolisosis is seen in the thoracolumbar spine as noted previously. There is no abnormal hypermetabolic pulmonary parenchymal uptake. The opacity in the left posterior lung gutter is again seen on todays accompanying chest CT images, although it appears linear and is most compatible with an area of discoid atelectasis. Maximum standard uptake value in it is 2.91. It is immediately adjacent to the chest wall and subdiaphragmatic soft tissues, which artifactually elevate the SUV. It is not felt to be hypermetabolic. No abnormal pulmonary parenchymal hypermetabolic activity is seen. Normal distribution of tracer is seen in the abdomen and pelvis. No abnormal hypermetabolic uptake is seen in the abdomen or pelvis. IMPRESSION: No abnormal hypermetabolic uptake seen. Left lower lobe opacity does not show significant avidity. Follow-up advised. MTDD
== END ==
LOC: M PLARAD 13:59
PROVIDERS: ATTEND Internal Medicine Pulmonary Disease
DX: R91.1 Solitary pulmonary nodule (principal)
CPT/HCPCS: 78815; A9552

== ENCOUNTER → 2020-01-31 | Outpatient (CLI) | payer MEDICARE | LOC: M WUC 08:28 | PROVIDERS: ATTEND Physician Assistant Medical | DX: R56.9 Unspecified convulsions (principal); E55.9 Vitamin D deficiency, unspecified ==

== ENCOUNTER → 2020-02-12 | Outpatient (CLI) | payer MEDICARE ==
--- NOTE | 2020-02-12 09:34 | REPMRS ---
Patient History Family history of breast cancer at age 50 or over in sister, breast cancer at age 50 or over in sister, breast cancer in sister, breast cancer in sister, breast cancer in mother. 3D TOMOSYNTHESIS WAS PERFORMED. The Almita Perez lifetime risk for breast cancer is 11.8%. Volpara breast density a. Digital Woman Screen Mammo: February 12, 2020 - Exam #: [id number] Bilateral CC and MLO view(s) were taken. Technologist: Marylin Navarro, Technologist Prior study comparison: July 05, 2018, bilateral digital woman screen mammo performed at [facility]. July 06, 2017, digital woman screen mammo performed at [facility]. FINDINGS: There are scattered fibroglandular densities. There has been no change in the appearance of the mammogram from the prior studies. There is a mild amount of residual fibroglandular tissue which is fairly symmetric. There is no interval development of dominant mass, architectural distortion, or clustered microcalcification suggestive of malignancy. Assessment: BI-RADS/ACR category 1 mammogram. Negative Mammogram. Recommendation Routine screening mammogram in 1 year (for women over age 40). This mammogram was interpreted with the aid of an FDA-approved computer-aided dectection system. Electronically Signed By: Sudarshan Cunningham MD 02/12/20 0934
== END ==
LOC: M WHC 08:00
PROVIDERS: ATTEND Family Medicine
DX: Z12.31 Encounter for screening mammogram for malignant neoplasm of breast (principal); Z80.3 Family history of malignant neoplasm of breast

== ENCOUNTER → 2020-10-29 | Outpatient (CLI) | payer MEDICARE ==
[2020-10-29 17:04] LABS: BASO # 0.1 10^3/uL (0.0-0.2); BASO % 0.8 % (0.0-1.0); EOS # 0.2 10^3/uL (0.0-0.5); EOS % 2.5 % (0.0-3.0); HEMATOCRIT 40.3 % (36.0-47.0); HEMOGLOBIN 12.2 g/dl (12.0-15.5); LYMPH % 34.1 % (24.0-44.0); MEAN CORPUSCULAR HGB CONC 30.3 g/dl (32.0-36.5); MONO # 0.3 10^3/uL (0.0-0.8); MONO % 4.5 % (2.0-8.0); NEUTROPHILS # 3.5 10^3/uL (1.5-8.5); NEUTROPHILS % 57.9 % (36.0-66.0); PLATELET COUNT, AUTOMATED 157 10^3/uL (150-450); RED BLOOD COUNT 4.07 10^6/uL (4.00-5.40)
[2020-10-29 17:33] LABS: ALBUMIN 3.7 GM/DL (3.2-5.2); ALT/SGPT 17 U/L (12-78); BILIRUBIN,TOTAL 0.2 MG/DL (0.2-1.0); BLOOD UREA NITROGEN 20 MG/DL (7-18); CALCIUM LEVEL 8.8 MG/DL (8.8-10.2); CARBON DIOXIDE LEVEL 26 MEQ/L (21-32); CHLORIDE LEVEL 108 MEQ/L (98-107); CREATININE FOR GFR 0.96 MG/DL (0.55-1.30); FOLATE 6.7 NG/ML; GLOMERULAR FILTRATION RATE > 60.0 (>45); GLUCOSE, FASTING 86 MG/DL (70-100); POTASSIUM SERUM 3.8 MEQ/L (3.5-5.1); RHEUMATOID FACTOR QUANT < 10.0 IU/ML (<15.0); SODIUM LEVEL 140 MEQ/L (136-145); TOTAL 25(OH) VITAMIN D 76.8 NG/ML (30.0-100.0); TOTAL PROTEIN 6.6 GM/DL (6.4-8.2); VITAMIN B12 LEVEL 449 PG/ML
[2020-10-29 18:40] LABS: HEMOGLOBIN A1c 5.4 %
[2020-10-29 19:34] LABS: ERYTHROCYTE SEDIMENTATION RATE 10 mm/hr (0-30)
== END ==
LOC: M WUC 10:44
PROVIDERS: ATTEND Physician Assistant Medical
DX: G40.89 Other seizures (principal); R25.1 Tremor, unspecified; R41.3 Other amnesia; Z79.899 Other long term (current) drug therapy

== ENCOUNTER → 2021-06-16 | Outpatient (CLI) | payer MEDICARE | LOC: M WHC 11:04 | PROVIDERS: ATTEND Family Medicine | DX: Z12.31 Encounter for screening mammogram for malignant neoplasm of breast (principal); Z80.3 Family history of malignant neoplasm of breast ==

== ENCOUNTER → 2021-09-14 | Outpatient (CLI) | payer MEDICARE ==
[2021-09-14 11:13] LABS: HEMATOCRIT 41.4 % (36.0-47.0); HEMOGLOBIN 12.4 g/dl (12.0-15.5); MEAN CORPUSCULAR HEMOGLOBIN 30.5 pg (27.0-33.0); MEAN CORPUSCULAR VOLUME 101.7 fl (80.0-96.0); PLATELET COUNT, AUTOMATED 146 10^3/uL (150-450); RED BLOOD COUNT 4.07 10^6/uL (4.00-5.40); WHITE BLOOD COUNT 5.3 10^3/uL (4.0-10.0)
[2021-09-14 12:33] LABS: ALBUMIN 3.8 GM/DL (3.2-5.2); ALT/SGPT 21 U/L (12-78); BILIRUBIN,TOTAL 0.4 MG/DL (0.2-1.0); BLOOD UREA NITROGEN 19 MG/DL (7-18); CALCIUM LEVEL 9.3 MG/DL (8.8-10.2); CARBON DIOXIDE LEVEL 26 MEQ/L (21-32); CHLORIDE LEVEL 110 MEQ/L (98-107); CHOLESTEROL LEVEL 155 MG/DL (<200); CHOLESTEROL RISK RATIO 2.719 (<5); CREATININE FOR GFR 0.96 MG/DL (0.55-1.30); GLOMERULAR FILTRATION RATE > 60.0 (>39); GLUCOSE, FASTING 82 MG/DL (70-100); HDL CHOLESTEROL 57 MG/DL (>40); LDL CHOLESTEROL 75 MG/DL (<100); MAGNESIUM LEVEL 2.6 MG/DL (1.8-2.4); NON-HDL-C 98 MG/DL; POTASSIUM SERUM 3.8 MEQ/L (3.5-5.1); SODIUM LEVEL 143 MEQ/L (136-145); TOTAL PROTEIN 6.7 GM/DL (6.4-8.2); TRIGLYCERIDES LEVEL 117 MG/DL (<150)
[2021-09-14 15:31] LABS: HEMOGLOBIN A1c 5.1 %
== END ==
LOC: M WUC 08:50
PROVIDERS: ATTEND Family Medicine
DX: I10 Essential (primary) hypertension (principal); R73.01 Impaired fasting glucose; Z79.899 Other long term (current) drug therapy

== ENCOUNTER → 2023-02-21 | Outpatient (CLI) | payer MEDICARE ==
[~2023-02-21] MED LIST changes: +TOPI-254 PO; -TOPI50TA9 PO
[2023-02-21 11:16] LABS: BASO # 0.1 10^3/uL (0.0-0.2); EOS # 0.3 10^3/uL (0.0-0.5); EOS % 5.3 % (0.0-3.0); HEMATOCRIT 41.9 % (36.0-47.0); HEMOGLOBIN 13.1 g/dl (12.0-15.5); LYMPH # 2.2 10^3/uL (1.5-5.0); LYMPH % 36.1 % (24.0-44.0); MEAN CORPUSCULAR HEMOGLOBIN 31.9 pg (27.0-33.0); MEAN CORPUSCULAR HGB CONC 31.3 g/dl (32.0-36.5); MEAN CORPUSCULAR VOLUME 101.9 fl (80.0-96.0); MONO # 0.3 10^3/uL (0.0-0.8); NEUTROPHILS # 3.1 10^3/uL (1.5-8.5); NEUTROPHILS % 52.3 % (36.0-66.0); PLATELET COUNT, AUTOMATED 154 10^3/uL (150-450); RED BLOOD COUNT 4.11 10^6/uL (4.00-5.40)
[2023-02-21 12:12] LABS: HEMOGLOBIN A1c 4.8 % (4.0-6.0)
[2023-02-21 15:14] LABS: ALBUMIN 3.7 G/DL (3.2-5.2); ALKALINE PHOSPHATASE 124 U/L (46-116); ALT/SGPT 12 U/L (7.0-40); AST/SGOT 12 U/L (<34); BILIRUBIN,TOTAL 0.3 MG/DL (0.3-1.2); BLOOD UREA NITROGEN 13 MG/DL (9-23); CARBON DIOXIDE LEVEL 28 MMOL/L (20-31); CHLORIDE LEVEL 107 MMOL/L (98-107); CHOLESTEROL LEVEL 143 MG/DL (<200); CREATININE FOR GFR 0.96 MG/DL (0.55-1.30); GLOMERULAR FILTRATION RATE > 60.0 (>39); GLUCOSE, FASTING 84 MG/DL (74-106); MAGNESIUM LEVEL 2.6 MG/DL (1.8-2.4); POTASSIUM SERUM 4.2 MMOL/L (3.5-5.1); SODIUM LEVEL 140 MMOL/L (136-145); TOTAL 25(OH) VITAMIN D 23.5 NG/ML (20.0-100.0); TOTAL PROTEIN 6.6 G/DL (5.7-8.2); TRIGLYCERIDES LEVEL 141 MG/DL (<150)
[2023-02-21 16:44] LABS: CHOLESTEROL RISK RATIO 2.96 (<5); HDL CHOLESTEROL 48.2 MG/DL (>40); LDL CHOLESTEROL 66.6 MG/DL (<100); NON-HDL-C 94.8 MG/DL
== END ==
LOC: M WUC 08:14
PROVIDERS: ATTEND Family Medicine
DX: Z79.899 Other long term (current) drug therapy (principal); I10 Essential (primary) hypertension; R73.01 Impaired fasting glucose

== ENCOUNTER 2023-06-11 12:04 | Inpatient (IN) | payer MEDICARE ==
[~2023-06-11] VITALS: Ht 170.2 cm; Wt 71.2 kg
[2023-06-11] MEDS: OMEPRAZOLE 20MG CAP PO SCH (09:00)
[2023-06-11] MEDS: MAGNESIUM OXIDE 400MG TAB (MAG-OX) PO SCH (09:00)
[2023-06-11] MEDS: BENAZEPRIL 5MG TAB PO SCH (09:00)
[2023-06-11] MEDS: ASPIRIN 81MG ENTERIC TABLET PO SCH (09:00)
[~2023-06-11 12:04] MED LIST changes: +BENAZEPRIL 20 MG TAB PO SCH; +TOPI-21 PO; -TOPI-254 PO
[2023-06-11 12:28] LABS: BASO # 0.1 10^3/uL (0.0-0.2); BASO % 0.2 % (0.0-1.0); HEMATOCRIT 43.3 % (36.0-47.0); HEMOGLOBIN 14.3 g/dl (12.0-15.5); LYMPH # 1.6 10^3/uL (1.5-5.0); LYMPH % 6.5 % (24.0-44.0); MEAN CORPUSCULAR HEMOGLOBIN 32.4 pg (27.0-33.0); MEAN CORPUSCULAR VOLUME 98.2 fl (80.0-96.0); MONO # 1.3 10^3/uL (0.0-0.8); MONO % 5.1 % (2.0-8.0); NEUTROPHILS # 21.6 10^3/uL (1.5-8.5); NEUTROPHILS % 87.7 % (36.0-66.0); PLATELET COUNT, AUTOMATED 221 10^3/uL (150-450); RED BLOOD COUNT 4.41 10^6/uL (4.00-5.40); WHITE BLOOD COUNT 24.7 10^3/uL (4.0-10.0)
[2023-06-11] MEDS: NS 1,000 ML IV ONE (12:50)
[2023-06-11 13:09] LABS: ALBUMIN 3.8 G/DL (3.2-5.2); ALKALINE PHOSPHATASE 135 U/L (46-116); ALT/SGPT 93 U/L (7.0-40); AST/SGOT 220 U/L (<34); BILIRUBIN,DIRECT 0.3 MG/DL (<0.4); BILIRUBIN,TOTAL 0.7 MG/DL (0.3-1.2); BLOOD UREA NITROGEN 38 MG/DL (9-23); CALCIUM LEVEL 9.3 MG/DL (8.3-10.6); CARBON DIOXIDE LEVEL 22 MMOL/L (20-31); CHLORIDE LEVEL 105 MMOL/L (98-107); CREATININE FOR GFR 0.69 MG/DL (0.55-1.30); GLOMERULAR FILTRATION RATE > 60.0 (>39); GLUCOSE, FASTING 133 MG/DL (74-106); POTASSIUM SERUM 3.2 MMOL/L (3.5-5.1); SODIUM LEVEL 139 MMOL/L (136-145)
[2023-06-11 13:21] LABS: PROCALCITONIN 0.09 ng/ml
[2023-06-11] MEDS: NS 1,180 ML in IV 1 EA IV ONE (13:32)
[2023-06-11] MEDS: cefTRIAXone SOD 2 GM in D5W MINI-BAG PLUS 50 ML IV ONE (13:32)
[2023-06-11 14:35] LABS: HEPATITIS B CORE ANTIBODY IGM NEGATIVE (NEGATIVE); HEPATITIS C VIRUS ABY INDEX < 0.02 INDEX (<0.8)
[2023-06-11 14:42] LABS: CPK CREATINE PHOSPHOKINASE 6186 U/L (34-145)
[2023-06-11] MEDS ORDERED: MED REC IN PROGRESS XX SCH (15:45)
[2023-06-11] MEDS ORDERED: ALBU2.5V10 INH (16:05)
[2023-06-11] MEDS ORDERED: MELO15TA28 PO (16:05)
[2023-06-11] MEDS ORDERED: OMEP40CA5 PO (16:05)
[2023-06-11] MEDS ORDERED: ACET-716 PO (16:05)
[2023-06-11] MEDS ORDERED: HOME MED LIST COMPLETE! XX SCH (16:10)
[2023-06-11] MEDS ORDERED: ALBUTEROL SULFATE 2.5MG/0.5ML INH NEB SOLN INH PRN (16:55)
[2023-06-11] MEDS ORDERED: ACETAMINOPHEN TAB 650MG DOSE (2X325MG) PO PRN (16:55)
[2023-06-11] MEDS: NS 1,000 ML IV SCH (16:55)
[2023-06-11 16:57] LABS: CK-MB VALUE MASS 180.7 NG/ML (<3.6)
[2023-06-11 17:11] LABS: MB/CK RELATIVE INDEX 2.1 (< OR =4)
[2023-06-11 18:27] LABS: INR 1.25; PARTIAL THROMBOPLASTIN TIME 27.9 SECONDS (24.8-34.2); PROTHROMBIN TIME 15.3 SECONDS (12.5-14.5)
[2023-06-11] MEDS ORDERED: BENAZEPRIL 5MG TAB PO SCH (18:47)
[2023-06-11 19:55] VITALS: BP 143/68; TEMP 101.3; O2SAT 95
[2023-06-11] MEDS: KCL 10MEQ/100ML SWI (KRUN) 10 MEQ in IV 1 EA IV SCH (20:34)
[2023-06-11] MEDS: NYSTATIN 100,000 UNITS/GM TOPICAL PWD 15GM TOP SCH (21:00)
[2023-06-11] MEDS: PRIMIDONE 50MG TAB PO SCH (21:00)
[2023-06-11] MEDS ORDERED: NYSTATIN CREAM 15GM TOP SCH (21:00)
[2023-06-11] MEDS: TOPIRAMATE (TopAMAX) 100 MG TAB PO SCH (21:00)
[2023-06-11] MEDS: lamoTRIgine 100MG TAB PO SCH (21:00)
[2023-06-11] MEDS ORDERED: NORTRIPTYLINE 25 MG CAP PO SCH (21:00)
[2023-06-11] MEDS: PANTOPRAZOLE 40MG VIAL IV SCH (21:10)
[2023-06-11] MEDS: ENOXAPARIN 40MG/0.4ML SYRINGE (J1650 PER 10MG) SC SCH (21:11)
[2023-06-11] MEDS ORDERED: PILL CUTTER 1 EACH XX PRN (21:15)
[2023-06-11] MEDS: levETIRAcetam INJection 500 MG in D5W MINI-BAG PLUS 100 ML IV SCH (21:49)
[2023-06-11] MEDS: ACETAMINOPHEN *IV* 1,000 MG in IV 1 EA IV STA (23:02)
[2023-06-12] VITALS (9 sets, daily range): BP systolic 114–152; BP diastolic 59–73; TEMP 97.2–100.5; O2SAT 93–97
[2023-06-12 05:38] LABS: HEMATOCRIT 36.9 % (36.0-47.0); MEAN CORPUSCULAR HGB CONC 31.7 g/dl (32.0-36.5); MEAN CORPUSCULAR VOLUME 100.8 fl (80.0-96.0); PLATELET COUNT, AUTOMATED 125 10^3/uL (150-450); RED BLOOD COUNT 3.66 10^6/uL (4.00-5.40); WHITE BLOOD COUNT 14.1 10^3/uL (4.0-10.0)
[2023-06-12 05:50] LABS: HEMOGLOBIN 11.7 g/dl (12.0-15.5)
[2023-06-12 06:22] LABS: ALBUMIN 2.7 G/DL (3.2-5.2); ALKALINE PHOSPHATASE 95 U/L (46-116); ALT/SGPT 108 U/L (7.0-40); AST/SGOT 271 U/L (<34); BILIRUBIN,TOTAL 0.5 MG/DL (0.3-1.2); BLOOD UREA NITROGEN 28 MG/DL (9-23); CALCIUM LEVEL 7.6 MG/DL (8.3-10.6); CARBON DIOXIDE LEVEL 23 MMOL/L (20-31); CHLORIDE LEVEL 116 MMOL/L (98-107); CK-MB VALUE MASS 88.9 NG/ML (<3.6); CPK CREATINE PHOSPHOKINASE 7475 U/L (34-145); CREATININE FOR GFR 0.63 MG/DL (0.55-1.30); GLOMERULAR FILTRATION RATE > 60.0 (>39); GLUCOSE, FASTING 94 MG/DL (74-106); MB/CK RELATIVE INDEX 1.18 (< OR =4); POTASSIUM SERUM 3.6 MMOL/L (3.5-5.1); SODIUM LEVEL 144 MMOL/L (136-145); TOTAL PROTEIN 5.1 G/DL (5.7-8.2)
[2023-06-12] MEDS ORDERED: NORTRIPTYLINE 25 MG CAP PO SCH (09:00)
[2023-06-12] MEDS ORDERED: ATORVASTATIN 20 MG TAB PO SCH (09:00)
[2023-06-12] MEDS ORDERED: MELOXICAM (MOBIC) 7.5 MG TAB PO SCH (09:00)
[2023-06-12] MEDS: TOPIRAMATE (TopAMAX) 100 MG TAB PO SCH (09:39)
[2023-06-12] MEDS: LORazepam 2 MG/ML 1ML VIAL IV ONE (10:23)
[2023-06-12] MEDS ORDERED: ASPIRIN 300 MG SUPP PR SCH (11:15)
[2023-06-12] MEDS: MAGNESIUM OXIDE 400MG TAB (MAG-OX) PO SCH (12:59)
[2023-06-12] MEDS: BENAZEPRIL 20 MG TAB PO SCH (13:02)
[2023-06-12] MEDS ORDERED: ISOVUE-370 76% 100ML VIAL As Ordered ONE (13:08)
[2023-06-12] MEDS: NORTRIPTYLINE 25 MG CAP PO SCH ×2 (14:36→20:28)
[2023-06-13 03:29] VITALS: BP 143/67; TEMP 97.8; O2SAT 98
[2023-06-13 05:39] LABS: HEMATOCRIT 35.2 % (36.0-47.0); MEAN CORPUSCULAR HEMOGLOBIN 31.7 pg (27.0-33.0); MEAN CORPUSCULAR HGB CONC 31.3 g/dl (32.0-36.5); MEAN CORPUSCULAR VOLUME 101.4 fl (80.0-96.0); PLATELET COUNT, AUTOMATED 126 10^3/uL (150-450); RED BLOOD COUNT 3.47 10^6/uL (4.00-5.40); WHITE BLOOD COUNT 10.3 10^3/uL (4.0-10.0)
[2023-06-13 06:12] LABS: ALBUMIN 2.6 G/DL (3.2-5.2); ALKALINE PHOSPHATASE 86 U/L (46-116); ALT/SGPT 121 U/L (7.0-40); AST/SGOT 218 U/L (<34); BILIRUBIN,TOTAL 0.3 MG/DL (0.3-1.2); BLOOD UREA NITROGEN 17 MG/DL (9-23); CALCIUM LEVEL 7.8 MG/DL (8.3-10.6); CARBON DIOXIDE LEVEL 23 MMOL/L (20-31); CHLORIDE LEVEL 116 MMOL/L (98-107); CREATININE FOR GFR 0.61 MG/DL (0.55-1.30); GLOMERULAR FILTRATION RATE > 60.0 (>39); GLUCOSE, FASTING 85 MG/DL (74-106); POTASSIUM SERUM 3.4 MMOL/L (3.5-5.1); SODIUM LEVEL 145 MMOL/L (136-145)
[2023-06-13 06:27] LABS: CPK CREATINE PHOSPHOKINASE 3438 U/L (34-145)
[2023-06-13 07:21] VITALS: BP 148/69; TEMP 97.4; O2SAT 94
[2023-06-13] MEDS: POTASSIUM CHLORIDE 10% LIQ 20MEQ/15ML UDC PO ONE (08:25)
[2023-06-13] MEDS: MELOXICAM (MOBIC) 7.5 MG TAB PO SCH (08:25)
[2023-06-13] MEDS: ASPIRIN 81MG ENTERIC TABLET PO SCH (08:26)
[2023-06-13] MEDS: OMEPRAZOLE 20MG CAP PO SCH (08:26)
[2023-06-13 11:56] VITALS: BP 150/65; TEMP 98.8; O2SAT 97
[2023-06-13 20:00] VITALS: BP 161/69; TEMP 98.2; O2SAT 94
[2023-06-14 03:41] VITALS: BP 144/76; TEMP 98.9; O2SAT 95
[2023-06-14 04:10] VITALS: BP 146/74; TEMP 98.1; O2SAT 98
[2023-06-14 06:25] LABS: HEMATOCRIT 37.1 % (36.0-47.0); HEMOGLOBIN 11.7 g/dl (12.0-15.5); MEAN CORPUSCULAR HGB CONC 31.5 g/dl (32.0-36.5); MEAN CORPUSCULAR VOLUME 101.4 fl (80.0-96.0); PLATELET COUNT, AUTOMATED 147 10^3/uL (150-450); RED BLOOD COUNT 3.66 10^6/uL (4.00-5.40)
[2023-06-14 06:52] LABS: ALBUMIN 2.7 G/DL (3.2-5.2); ALKALINE PHOSPHATASE 89 U/L (46-116); ALT/SGPT 100 U/L (7.0-40); AST/SGOT 119 U/L (<34); BILIRUBIN,TOTAL 0.4 MG/DL (0.3-1.2); BLOOD UREA NITROGEN 13 MG/DL (9-23); CALCIUM LEVEL 7.9 MG/DL (8.3-10.6); CARBON DIOXIDE LEVEL 24 MMOL/L (20-31); CHLORIDE LEVEL 116 MMOL/L (98-107); CREATININE FOR GFR 0.61 MG/DL (0.55-1.30); GLOMERULAR FILTRATION RATE > 60.0 (>39); GLUCOSE, FASTING 94 MG/DL (74-106); POTASSIUM SERUM 3.6 MMOL/L (3.5-5.1); SODIUM LEVEL 143 MMOL/L (136-145); TOTAL PROTEIN 5.1 G/DL (5.7-8.2)
[2023-06-14 08:00] VITALS: BP 143/68; TEMP 98.8; O2SAT 96
[2023-06-14 14:00] VITALS: BP 142/78; TEMP 97.9; O2SAT 94
[2023-06-14] MEDS: ANALGESIC BALM CRM 3OZ TOP SCH (16:25)
[2023-06-14 20:18] VITALS: BP 156/74; TEMP 97.9; O2SAT 96
[2023-06-15 05:35] VITALS: BP 128/59; TEMP 98.1; O2SAT 95
[2023-06-15 13:42] LABS: CPK CREATINE PHOSPHOKINASE 523 U/L (34-145)
[2023-06-15 14:00] VITALS: BP 143/69; TEMP 98; O2SAT 97
[2023-06-15 14:02] LABS: ALBUMIN 2.3 G/DL (3.2-5.2); ALKALINE PHOSPHATASE 74 U/L (46-116); ALT/SGPT 78 U/L (7.0-40); AST/SGOT 65 U/L (<34); BILIRUBIN,TOTAL 0.3 MG/DL (0.3-1.2); BLOOD UREA NITROGEN 13 MG/DL (9-23); CALCIUM LEVEL 7.8 MG/DL (8.3-10.6); CARBON DIOXIDE LEVEL 26 MMOL/L (20-31); CHLORIDE LEVEL 111 MMOL/L (98-107); CREATININE FOR GFR 0.63 MG/DL (0.55-1.30); GLOMERULAR FILTRATION RATE > 60.0 (>39); GLUCOSE, FASTING 108 MG/DL (74-106); POTASSIUM SERUM 3.4 MMOL/L (3.5-5.1); SODIUM LEVEL 142 MMOL/L (136-145); TOTAL PROTEIN 4.8 G/DL (5.7-8.2)
[2023-06-15] MEDS ORDERED: VARIBAR PUDDING 40% w/v 230ML TUBE As Ordered ONE (14:02)
[2023-06-15] MEDS ORDERED: BARIUM SULFATE 700 MG TABLET (E-Z-DISK) As Ordered ONE (14:02)
[2023-06-15] MEDS ORDERED: VARIBAR NECTAR 40% w/v 240ML SUSP BTL As Ordered ONE (14:02)
[2023-06-15] MEDS ORDERED: E-Z-PAQUE 96% w/w SUSP 176GM BTL As Ordered ONE (14:02)
[2023-06-15] MEDS ORDERED: POTA10CA60 PO (14:58)
[2023-06-15] MEDS: POTASSIUM CHLORIDE 10MEQ SR TABLET PO ONE (15:03)
[2023-06-15 20:00] VITALS: BP 142/68; TEMP 97.3; O2SAT 95
[2023-06-16] MEDS: ACETAMINOPHEN TAB 650MG DOSE (2X325MG) PO ONE (02:22)
[2023-06-16 04:40] VITALS: BP 135/76; TEMP 97.2; O2SAT 97
[2023-06-16 08:24] VITALS: BP 139/84
== END 2023-06-16 13:18 | disposition home health service (06) | DRG 558 ==
LOC: EDBD 12:04 → M ED 12:04 → M ED INP 16:55 → ENRESERV 19:29 → M PCU 19:55 → M MSPAV 06-14 04:04
PROVIDERS: ADMIT Internal Medicine; ATTEND Student in an Organized Health Care Education/Training Program
DX: M62.82 Rhabdomyolysis (principal); R65.10 Systemic inflammatory response syndrome (SIRS) of non-infectious origin without acute organ dysfunction; G11.19 Other early-onset cerebellar ataxia; I10 Essential (primary) hypertension; G40.909 Epilepsy, unspecified, not intractable, without status epilepticus; E83.42 Hypomagnesemia; E87.6 Hypokalemia; F32.A Depression, unspecified; R21 Rash and other nonspecific skin eruption; K21.9 Gastro-esophageal reflux disease without esophagitis; E66.9 Obesity, unspecified; Z91.030 Bee allergy status; Z79.899 Other long term (current) drug therapy; Z79.82 Long term (current) use of aspirin

== ENCOUNTER 2023-07-15 08:43 | Outpatient (RCR) | payer MEDICARE ==
[~2023-07-15 08:43] MED LIST changes: +ACET-716 PO; +ALBU2.5V10 INH; -BENAZEPRIL 20 MG TAB PO SCH; +MELO15TA28 PO; +OMEP40CA5 PO; +POTA10CA60 PO
== END 2023-07-19 ==
LOC: M ST 08:43
PROVIDERS: ATTEND Student in an Organized Health Care Education/Training Program
DX: R13.10 Dysphagia, unspecified (principal)

== ENCOUNTER 2023-08-11 11:08 | Outpatient (RCR) | payer MEDICARE ==
[~2023-08-11 11:08] MED LIST changes: -POTA10CA60 PO; +POTA10CA70 PO
== END 2023-08-19 ==
LOC: M ST 11:08
PROVIDERS: ATTEND Student in an Organized Health Care Education/Training Program
DX: R13.10 Dysphagia, unspecified (principal)

== ENCOUNTER → 2023-08-29 | Outpatient (REF) | payer MEDICARE ==
[2023-08-29 11:11] LABS: BLOOD UREA NITROGEN 19 MG/DL (9-23); CALCIUM LEVEL 9.5 MG/DL (8.3-10.6); CARBON DIOXIDE LEVEL 29 MMOL/L (20-31); CHLORIDE LEVEL 107 MMOL/L (98-107); CREATININE FOR GFR 0.87 MG/DL (0.55-1.30); GLOMERULAR FILTRATION RATE > 60.0 (>39); GLUCOSE, FASTING 86 MG/DL (74-106); SODIUM LEVEL 141 MMOL/L (136-145)
== END ==
LOC: M LABWUC 09:58
PROVIDERS: ATTEND Family Medicine
DX: M62.82 Rhabdomyolysis (principal)

== ENCOUNTER 2023-09-02 08:58 | Outpatient (RCR) | payer MEDICARE | END 2023-09-18 | LOC: M ST 08:58 | PROVIDERS: ATTEND Student in an Organized Health Care Education/Training Program | DX: R13.10 Dysphagia, unspecified (principal) ==

== ENCOUNTER → 2023-10-06 | Outpatient (CLI) | payer MEDICARE ==
[~2023-10-06] MED LIST changes: +BARIUM SULFATE 700 MG TABLET (E-Z-DISK) As Ordered ONE; +E-Z-PAQUE 96% w/w SUSP 176GM BTL As Ordered ONE; +VARIBAR NECTAR 40% w/v 240ML SUSP BTL As Ordered ONE; +VARIBAR PUDDING 40% w/v 230ML TUBE As Ordered ONE
== END ==
LOC: M RAD 11:15
PROVIDERS: ATTEND Family Medicine
DX: R13.12 Dysphagia, oropharyngeal phase (principal)

== ENCOUNTER → 2024-11-06 | Outpatient (CLI) | payer MEDICARE ==
[~2024-11-06] MED LIST changes: -BARIUM SULFATE 700 MG TABLET (E-Z-DISK) As Ordered ONE; -E-Z-PAQUE 96% w/w SUSP 176GM BTL As Ordered ONE; +TOPI-257 PO; -TOPI100T9 PO; -VARIBAR NECTAR 40% w/v 240ML SUSP BTL As Ordered ONE; -VARIBAR PUDDING 40% w/v 230ML TUBE As Ordered ONE
[2024-11-06 12:50] LABS: ALT/SGPT 16.0 U/L (7.0-40); AST/SGOT 19.0 U/L (<34); BASO # 0.1 10^3/uL (0.0-0.2); BASO % 0.7 % (0.0-1.0); CALCIUM LEVEL 8.9 MG/DL (8.3-10.6); CARBON DIOXIDE LEVEL 29.0 MMOL/L (20-31); CHLORIDE LEVEL 107.0 MMOL/L (98-107); CHOLESTEROL LEVEL 150.0 MG/DL (<200); CHOLESTEROL RISK RATIO 2.89 (<5); CREATININE FOR GFR 1.04 MG/DL (0.55-1.30); EOS # 0.4 10^3/uL (0.0-0.5); EOS % 5.2 % (0.0-3.0); GLOMERULAR FILTRATION RATE 56.8 (>39); LDL CHOLESTEROL 75.3 MG/DL (<100); LYMPH # 2.2 10^3/uL (1.5-5.0); LYMPH % 32.0 % (24.0-44.0); MONO # 0.4 10^3/uL (0.0-0.8); MONO % 5.8 % (2.0-8.0); NEUTROPHILS # 3.9 10^3/uL (1.5-8.5); NEUTROPHILS % 56.0 % (36.0-66.0); NON-HDL-C 98.1 MG/DL; PLATELET COUNT, AUTOMATED 181 10^3/uL (150-450); POTASSIUM SERUM 4.2 MMOL/L (3.5-5.1); SODIUM LEVEL 144.0 MMOL/L (136-145); TRIGLYCERIDES LEVEL 114.0 MG/DL (<150)
[2024-11-06 12:53] LABS: TOTAL 25(OH) VITAMIN D 22.2 NG/ML (20.0-100.0)
[2024-11-06 13:20] LABS: ESTIMATED AVERAGE GLUCOSE 105.0 MG/DL (60-110)
== END ==
LOC: M WUC 08:03
PROVIDERS: ATTEND Family Medicine
DX: R73.01 Impaired fasting glucose (principal); I10 Essential (primary) hypertension; Z79.899 Other long term (current) drug therapy